=== PATIENT | female | born 1960 ===

== ENCOUNTER 2016-11-18 11:27 | Emergency (ER) | payer SELFPAY ==
--- NOTE | 2016-11-25 11:01 | ER ---
ADMIT: 11/18/2016 RM/LOC: ER [facility] MR#: [id number] [address] [facility] [address] [place], [place] [address] RADHA FRY [address] [place] [address] Emergency Room Report SEX: F AGE: 56 : 1960 DATE: 11/18/2016 HISTORY OF PRESENT ILLNESS: The patient is a 56-year-old, female, presents to the emergency room complaining of chest discomfort. She said it started yesterday, still present. She took an aspirin yesterday. She feels like she is kind of weak on exertion. She is visiting from [facility] and states that she has had history of diabetes type 2, hypertension, hyperlipidemia, and gastritis. She takes lisinopril and metformin, but she also admits to not being very consistent with her medication at home. She denies the chest pain radiating anywhere in her chest, arms, or neck. She is not short of breath, has no nausea or vomiting, no diaphoresis, does not hurt to breathe. No dizziness. She seems pretty comfortable, but concerned about her health. PHYSICAL EXAMINATION: VITAL SIGNS: Blood pressure 181/99, heart rate 118, respirations 14, temp is 98.3, and O2 sats 96%. GENERAL: Mildly anxious on examination. HEENT: Normal inspection. NECK: Supple. No JVD present. RESPIRATION: No distress. No splinting, rales, rhonchi, or wheezes. CVS: Tachycardic. She does have chest wall tenderness, which is reproducible in the sternum as well as in the right chest. ABDOMEN: Nontender. SKIN: Good color and turgor, intact, not diaphoretic. EXTREMITIES: Nontender. No edema noted. NEUROLOGIC: Oriented x4. Mood and affect are appropriate. LABORATORY DATA: White count is 4.9 with a normal hemoglobin as well. Chemistry; glucose of 331. Cardiac enzymes within normal limits. Troponin 0.015 with a CK-MB of 0.7/1.5. CK is 47. Her urinalysis shows 1000 glucose and ketones 1+. X-ray interpretation by radiologist no acute findings. CLINICAL IMPRESSION: 1. Chest wall pain. 2. Hyperglycemia. 3. Poorly-controlled diabetes mellitus type 2. The patient was given a diabetic diet. Must follow up with PCP for re- evaluation, medications, and symptoms. Return if short of breath, chest pain, or unable to reach your PCP for followup. I did give her Dr. Valdez, local PCP. JULIET Theodore / Aries Vargas MD / keelyl JOB #: [id number] CC: Aries Vargas MD, Attending Physician ADMIT: 11/18/2016 RM/LOC: [facility] MR#: [id number] [facility] [address] [address] RADHA FRY [address] [place] [address] Emergency Room Report SEX: F AGE: 56 : 1960 UNKNOWN, Family Physician
== END 2016-11-18 15:30 | disposition home or self-care (01) ==
LOC: ER 11:27
DX: R07.89 Other chest pain (principal); E11.65 Type 2 diabetes mellitus with hyperglycemia; I10 Essential (primary) hypertension; F32.9 Major depressive disorder, single episode, unspecified; Z79.84 Long term (current) use of oral hypoglycemic drugs